=== PATIENT | male | born 1975 | race Hispanic/Latino ===

== ENCOUNTER → 2016-10-04 | Outpatient (CLI) | payer OTHER ==
--- NOTE | 2016-10-04 13:20 | REP ---
MRI left ankle without and with IV gadolinium: History: Left ankle pain. Lump on the medial aspect of the hind foot, likely ganglion cyst by ultrasound. Technique: Markers are affixed to the skin at the medial aspect of the hind foot to denote the area of the palpable lump. Axial, coronal and sagittal imaging planes are utilized. T1 and T2-weighted scans are obtained in the usual fashion with and without fat saturation. Gadolinium enhancement dose: 14 ml of intravenous ProHance is given. MRI findings: No ganglion cyst is visible at the medial aspect of the midfoot or hindfoot on the left side. No soft tissue mass is seen. Cortical and medullary bone signal intensity are normal. There is no evidence of tarsal coalition. The talar dome and tibial plafond appear intact. No ligament disruption is appreciated. No tendinopathy is seen. No accessory ossicle is observed. Post gadolinium enhanced images show no abnormal gadolinium enhancement. Impression: Unremarkable MRI study left foot. Signed by Bowen Sanderson MD 10/04/2016 06:26 P
== END ==
LOC: M RAD 10:04
PROVIDERS: ATTEND Podiatrist
DX: M79.671 Pain in right foot (principal)
CPT/HCPCS: 73720; A9576

== ENCOUNTER → 2016-10-12 | Outpatient (REF) | payer OTHER | LOC: M LAB REF 13:20 | PROVIDERS: ATTEND Surgery | DX: L72.11 Pilar cyst (principal) ==

== ENCOUNTER → 2017-10-07 | Outpatient (CLI) | payer OTHER | LOC: M RAD 16:41 | DX: M54.5 Low back pain (principal) ==